=== PATIENT | female | born 2000 | race African-American/Black ===

== ENCOUNTER 2023-09-14 19:48 | Emergency (ER) | payer BC, OTHER ==
[2023-09-14 19:56] VITALS: BP 98/61; PULSE 98; RESP 19; TEMP 98.6; BMI 43.2
[2023-09-14] MEDS ORDERED: diphenhydrAMINE HCL 25 MG CAPSULE (FP) PO ONE (20:15)
[2023-09-14] MEDS ORDERED: DEXAMETHASONE SOD PHOSPHATE 10 MG/1 ML VIAL ONE (20:15)
[2023-09-14] MEDS: diphenhydrAMINE HCL 25 MG CAPSULE (FP) PO ONE (20:17)
[2023-09-14] MEDS: DEXAMETHASONE SOD PHOSPHATE 10 MG/1 ML VIAL PO ONE (20:17)
== END 2023-09-14 21:15 | disposition home or self-care (01) ==
LOC: JER 19:48
DX: L29.9 Pruritus, unspecified (principal); T78.1XXA Other adverse food reactions, not elsewhere classified, initial encounter
CPT/HCPCS: 99283-25; J1100

== ENCOUNTER 2024-10-30 15:13 | Emergency (ER) | payer OTHER ==
[2024-10-30 15:20] VITALS: BP 121/82; PULSE 90; RESP 18; TEMP 97.3; BMI 45.7
[2024-10-30] MEDS ORDERED: ACETAMINOPHEN 500 MG TABLET (FP) ONE (15:49)
[2024-10-30] MEDS: ACETAMINOPHEN 500 MG TABLET (FP) PO ONE (16:04)
[2024-10-30] MEDS: MAG HYDROX/ALH/SMC/DPHA/LIDO 240 ML MOUTHWASH MM ONE (16:45)
[2024-10-30 17:12] LABS: THROAT:GRP A STREP NOT DETECTED (NOTDETECTED)
[2024-10-30] MEDS ORDERED: MAG HYDROX/ALH/SMC/DPHA/LIDO 240 ML MOUTHWASH MM SCH (18:00)
== END 2024-10-30 17:13 | disposition home or self-care (01) ==
LOC: JERFT 15:13
DX: J02.9 Acute pharyngitis, unspecified (principal); R05.9 Cough, unspecified; R09.81 Nasal congestion; J06.9 Acute upper respiratory infection, unspecified; B34.9 Viral infection, unspecified
CPT/HCPCS: 87637-QW; 87651; 99283-25